=== PATIENT | female | born 1995 | race Caucasian/White ===

== ENCOUNTER 2016-10-13 22:58 | Emergency (ER) | payer OTHER ==
[~2016-10-13] VITALS: Ht 156.2 cm; Wt 55.0 kg
[~2016-10-13 22:58] MED LIST: BACT800T5 PO; CEPH500C3 PO; PENI500T PO
[2016-10-13 23:01] VITALS: BP 125/75; PULSE 107; RESP 16; TEMP 98.3; O2SAT 100
[2016-10-14 01:00] VITALS: BP 118/69; PULSE 98; RESP 14; O2SAT 100
[2016-10-14] MEDS ORDERED: QUEtiapine FUMARATE 25 MG TAB PO ONE (02:15)
[2016-10-14] MEDS ORDERED: IBUPROFEN 600 MG TAB PO ONE (02:15)
[2016-10-14] MEDS ORDERED: LORazepam 1 MG TAB PO ONE (02:15)
[2016-10-14 02:34] LABS: AUTOMATED NEUTROPHIL # 6.7 TH/MM3 (1.8-7.7); BASOPHIL # 0.1 TH/MM3 (0-0.2); BASOPHIL % 0.6 % (0.0-2.0); EOSINOPHIL # 0.1 TH/MM3 (0-0.4); EOSINOPHIL % 1.1 % (0.0-4.0); HEMATOCRIT 39.9 % (35.0-46.0); HEMO FLAGS DIFF FINAL; LYMPH % 26.9 % (9.0-44.0); LYMPHOCYTE # 2.9 TH/MM3 (1.0-4.8); MEAN CELL VOLUME 86.2 FL (80.0-100.0); MEAN CORPUSCULAR HEMOGLOBIN 29.3 PG (27.0-34.0); MONO % 8.6 % (0.0-8.0); NEUT % 62.8 % (16.0-70.0); PLATELET COUNT 346 TH/MM3 (150-450); RED BLOOD COUNT 4.62 MIL/MM3 (4.00-5.30); RED CELL DISTRIBUTION WIDTH 13.6 % (11.6-17.2); WHITE BLOOD COUNT 10.6 TH/MM3 (4.0-11.0)
[2016-10-14 02:48] LABS: ALT (GPT) 20 U/L (10-53); ANION GAP 10 MEQ/L (5-15); AST (GOT) 23 U/L (15-37); BICARBONATE 23.6 MEQ/L (21.0-32.0); BLOOD UREA NITROGEN 19 MG/DL (7-18); CHLORIDE 103 MEQ/L (98-107); GLOMERULAR FILTRATION RATE 73 ML/MIN (>89); POTASSIUM 3.9 MEQ/L (3.5-5.1); SODIUM (NA) 137 MEQ/L (136-145)
[2016-10-14 02:50] LABS: ALKALINE PHOSPHATASE 61 U/L (45-117)
[2016-10-14 02:52] LABS: ACETAMINOPHEN LESS THAN 2.0 MCG/ML (10.0-30.0)
[2016-10-14 03:00] VITALS: BP 124/64; PULSE 95; RESP 14; O2SAT 100
[2016-10-14] MEDS ORDERED: SODIUM CHLOR 0.9% 1000 ML INJ 1,000 ML IV SCH (03:49)
--- NOTE | 2016-10-14 03:57 | PD ---
HPI Chief Complaint: Psychiatric Symptoms Time Seen by Provider: 01:59 Travel History International Travel<30 days: No Contact w/Intl Traveler<30days: No Traveled to known affect area: No History of Present Illness HPI 19-year-old female presents emergency department for evaluation of body aches and not taking her medicine feeling off. Patient also states she was kicked out of her apartment and her medicines including Seroquel were there but she was not allowed in there so she needs refill. Ration states "I feel ready to snap and needs psychiatric help". Patient also complains of generalized body aches and states she was out in the sun recently. She denies any fevers rash bowel pain nausea vomiting diarrhea. She also does complain of some bruising in bilateral lower extremity's. PFSH Past Medical History Bipolar Disorder: Yes Anxiety: Yes Depression: Yes Diminished Hearing: No Insomnia: Yes Schizophrenia: Yes Tetanus Vaccination: Unknown Influenza Vaccination: No ?: Not LMP: 10/10/16 Past Surgical History Surgical History: No Previous Surgery Social History Alcohol Use: Yes (OCCASIONALLY) Tobacco Use: Yes (1/2 PPD) Substance Use: Yes (MARIJUANA, DILUADID, XANAX, ADDERALL, VYVANSE, CRACK, FLAKKA, CORI) Allergies-Medications (Allergen,Severity, Reaction): Coded Allergies: No Known Allergies (Unverified , 10/13/16) Reported Meds & Prescriptions Reported Meds & Active Scripts Active Bactrim DS (Sulfamethoxazole-Trimethoprim DS) 1 Tab Tab 1 Tab PO BID 10 Days Keflex (Cephalexin Monohydrate) 500 Mg Cap 500 Mg PO BID Pen Vk (Penicillin V Potassium) 500 Mg Tab 500 Mg PO BID Review of Systems Except as stated in HPI: all other systems reviewed are Neg Physical Exam Narrative GENERAL: Well-developed well-nourished, thin but in no apparent distress. SKIN: Focused skin assessment warm/dry. Patient's feet are significant only dirty, there are bilateral ecchymosis over the shins which are very small show signs of healing. HEAD: Atraumatic. Normocephalic. EYES: Pupils equal and round. No scleral icterus. No injection or drainage. ENT: No nasal bleeding or discharge. Mucous membranes pink and moist. NECK: Trachea midline. No JVD. CARDIOVASCULAR: Regular rate and rhythm. No murmur appreciated. RESPIRATORY: No accessory muscle use. Clear to auscultation. Breath sounds equal bilaterally. GASTROINTESTINAL: Abdomen soft, non-tender, nondistended. Hepatic and splenic margins not palpable. MUSCULOSKELETAL: No obvious deformities. No clubbing. No cyanosis. No edema. NEUROLOGICAL: Awake and alert. No obvious cranial nerve deficits. Motor grossly within normal limits. Normal speech. PSYCHIATRIC: Endorses suicidal ideation without planning. Height and level of awareness could be early rody. Data Data Last Documented VS Vital Signs Date Time Temp Pulse Resp B/P Pulse Ox O2 Delivery O2 Flow Rate FiO2 10/14/16 01:30 82 20 10/13/16 23:01 98.3 125/75 100 Orders Complete Blood Count With Diff (10/14/16 02:07) Comprehensive Metabolic Panel (10/14/16 02:07) Psych Screen (10/14/16 02:07) Drug Screen, Random Urine (10/14/16 02:07) Alcohol (Ethanol) (10/14/16 02:07) Lorazepam (Ativan) (10/14/16 02:15) Quetiapine (Seroquel) (10/14/16 02:15) Ibuprofen (Motrin) (10/14/16 02:15) Salicylates (Aspirin) (10/14/16 02:19) Tylenol (Acetaminophen) (10/14/16 02:15) Ed Urine Pregnancytest Poc (10/14/16 02:31) Creatine Kinase (Cpk) (10/14/16 03:06) CKMB (10/14/16 03:06) CKMB% (10/14/16 03:06) Iv Access Insert/Monitor (10/14/16 03:49) Ecg Monitoring (10/14/16 03:49) Oximetry (10/14/16 03:49) Sodium Chlor 0.9% 1000 Ml Inj (Ns 1000 M (10/14/16 03:49) Sodium Chloride 0.9% Flush (Ns Flush) (10/14/16 04:00) Sodium Chlor 0.9% 1000 Ml Inj (Ns 1000 M (10/14/16 04:00) Labs Laboratory Tests Test 10/14/16 10/14/16 02:15 03:06 White Blood Count 10.6 TH/MM3 Red Blood Count 4.62 MIL/MM3 Hemoglobin 13.5 GM/DL Hematocrit 39.9 % Mean Corpuscular Volume 86.2 FL Mean Corpuscular Hemoglobin 29.3 PG Mean Corpuscular Hemoglobin 34.0 % Concent Red Cell Distribution Width 13.6 % Platelet Count 346 TH/MM3 Mean Platelet Volume 8.0 FL Neutrophils (%) (Auto) 62.8 % Lymphocytes (%) (Auto) 26.9 % Monocytes (%) (Auto) 8.6 % Eosinophils (%) (Auto) 1.1 % Basophils (%) (Auto) 0.6 % Neutrophils # (Auto) 6.7 TH/MM3 Lymphocytes # (Auto) 2.9 TH/MM3 Monocytes # (Auto) 0.9 TH/MM3 Eosinophils # (Auto) 0.1 TH/MM3 Basophils # (Auto) 0.1 TH/MM3 CBC Comment DIFF FINAL Differential Comment Sodium Level 137 MEQ/L Potassium Level 3.9 MEQ/L Chloride Level 103 MEQ/L Carbon Dioxide Level 23.6 MEQ/L Anion Gap 10 MEQ/L Blood Urea Nitrogen 19 MG/DL Creatinine 0.96 MG/DL Estimat Glomerular Filtration 73 ML/MIN Rate Random Glucose 91 MG/DL Calcium Level 9.0 MG/DL Total Bilirubin 2.0 MG/DL Aspartate Amino Transf 23 U/L (AST/SGOT) Alanine Aminotransferase 20 U/L (ALT/SGPT) Alkaline Phosphatase 61 U/L Total Protein 8.3 GM/DL Albumin 4.9 GM/DL Salicylates Level 2.6 MG/DL Acetaminophen Level LESS THAN 2.0 MCG/ML Ethyl Alcohol Level LESS THAN 3 MG/DL Total Creatine Kinase 544 U/L MDM Medical Decision Making Medical Screen Exam Complete: Yes Emergency Medical Condition: Yes Differential Diagnosis Bipolar disorder, rody, suicidal ideation, medication noncompliance, rhabdomyolysis, generalized body aches. Narrative Course Patient was roomed in the emergency department, she appears well in no apparent distress. Her CK is minimally elevated to 500 and she was given 2 L normal saline in the emergency department. She was also given Seroquel and Ativan. Patient would like to see a psychiatrist. At this time I don't think she meets involuntary criteria but would like to do so voluntarily. After HER-2 liters of normal saline she will be medically stable for psychiatric evaluation and disposition. Urine test was negative. Remainder of her labs are within normal limits. Diagnosis Primary Impression: Dehydration Additional Impression: Rody Condition: Stable Hamzah Delgado MD Oct 14, 2016 03:57
[2016-10-14] MEDS ORDERED: SODIUM CHLOR 0.9% 1000 ML INJ 1,000 ML IV ONE (04:00)
[2016-10-14] MEDS ORDERED: SODIUM CHLORIDE 0.9% FLUSH 10 ML FLUSH IV FLUSH PRN (04:00)
[2016-10-14 04:13] LABS: CKMB 2.2 NG/ML (0.5-3.6)
[2016-10-14 04:23] VITALS: RESP 19; O2SAT 98
[2016-10-14 05:00] VITALS: BP 115/70; PULSE 98; RESP 14; O2SAT 100
[2016-10-14] MEDS ORDERED: DIAZ5 PO (05:05)
[2016-10-14] MEDS ORDERED: SERO300T PO (05:05)
[2016-10-14 08:00] VITALS: BP 110/72; PULSE 89; RESP 14; O2SAT 100
[2016-10-14 11:00] VITALS: BP 114/75; PULSE 92; RESP 14; O2SAT 100
--- NOTE | 2016-10-14 12:51 | PD ---
History of Present Illness Chief Complaint: Psychiatric Symptoms Time Seen by Provider: 12:30 Travel History International Travel<30 Days: No Contact w/Intl Traveler<30days: No Known affected area: No Legal Status Legal Status: Voluntary History of Present Illness: This is a 20-year-old female who is unpleasant and disrespectful, seeking refills of Seroquel and Valium because she states that she has been kicked out of her apartment. She is not suicidal or homicidal but was certainly argumentative and disrespectful with regard to medications. She makes excuses such as she just woke up at 12:00 PM, and therefore does not want the lights turned on the room, or to sit up and speak with this physician. This physician offered to provide her with a replacement prescription for Seroquel but not Valium. At this point the patient became irate and argumentative, indicating that because she had abused drugs in the past did not mean she never become addicted to them. Patient demonstrates no psychotic symptoms and her cognition is intact. This physician feels that her primary problem is the abuse of drugs and a personality disorder. It with therefore be contraindicated to get into her wish for psychiatric inpatient hospitalization with Valium administration. PFSH Past Medical History Medical History: Denies Significant Hx Bipolar Disorder: Yes Anxiety: Yes Depression: Yes Diminished Hearing: No Insomnia: Yes Schizophrenia: Yes Tetanus Vaccination: Unknown Influenza Vaccination: No ?: Not LMP: 10/10/16 Past Surgical History Surgical History: No Previous Surgery Psychiatric History Psychiatric History Hx Psychiatric Treatment: Reports treatment for an alleged diagnosis of bipolar disorder. This physician does not see evidence of a mood disorder but rather evidence of a personality disorder, including drug abuse and manipulativeness. Social History Hx Alcohol Use: Yes (OCCASIONALLY) Hx Tobacco Use: Yes (1/2 PPD) Hx Substance Use: Yes (MARIJUANA, DILUADID, XANAX, ADDERALL, VYVANSE, CRACK, FLAKKA, CORI) Allergies-Medications (Allergen,Severity, Reaction): Coded Allergies: No Known Allergies (Unverified , 10/13/16) Reported Meds & Prescriptions Reported Meds & Active Scripts Active Reported Valium (Diazepam) 5 Mg Tab 5 Mg PO QID PRN Seroquel (Quetiapine Fumarate) 300 Mg Tab 350 Mg PO BID Review of Systems ROS Limitations: Clinical Condition Except as stated in HPI: all other systems reviewed are Neg Exam Exam Limitations: Clinical Condition Alert: Yes [place]: Person, Place, Date, Situation Mood: Oppositional Affect: Labile Speech: Clear, Logical Eye Contact: Indirect Memory Intact: Immediate, Recent, Remote Insight/Judgement Impaired but adequate. MDM Medical Decision Making Medical Record Reviewed: Yes Assessment/Plan Patient is drug seeking and appears to be very manipulative and exhibiting features of a borderline personality disorder. As described previously, this physician is willing to give her a replacement prescription for Seroquel 300 mg a day but not a replacement prescription for Valium, if she had one in the first place. Patient should not be psychiatrically hospitalized as she is drug seeking and manipulative. This does not mean she is without risk for acting out. However, it is counter therapeutic to give into her manipulations. Orders Complete Blood Count With Diff (10/14/16 02:07) Comprehensive Metabolic Panel (10/14/16 02:07) Psych Screen (10/14/16 02:07) Drug Screen, Random Urine (10/14/16 02:07) Alcohol (Ethanol) (10/14/16 02:07) Lorazepam (Ativan) (10/14/16 02:15) Quetiapine (Seroquel) (10/14/16 02:15) Ibuprofen (Motrin) (10/14/16 02:15) Salicylates (Aspirin) (10/14/16 02:19) Tylenol (Acetaminophen) (10/14/16 02:15) Ed Urine Pregnancytest Poc (10/14/16 02:31) Creatine Kinase (Cpk) (10/14/16 03:06) CKMB (10/14/16 03:06) CKMB% (10/14/16 03:06) Iv Access Insert/Monitor (10/14/16 03:49) Ecg Monitoring (10/14/16 03:49) Oximetry (10/14/16 03:49) Sodium Chlor 0.9% 1000 Ml Inj (Ns 1000 M (10/14/16 03:49) Sodium Chloride 0.9% Flush (Ns Flush) (10/14/16 04:00) Sodium Chlor 0.9% 1000 Ml Inj (Ns 1000 M (10/14/16 04:00) Results Vital Signs Date Time Temp Pulse Resp B/P Pulse Ox O2 Delivery O2 Flow Rate FiO2 10/14/16 05:00 98 14 115/70 100 Room Air 10/14/16 04:23 19 98 Room Air 10/14/16 03:00 95 14 124/64 100 Room Air 10/14/16 01:30 82 20 10/14/16 01:00 98 14 118/69 100 Room Air 10/13/16 23:01 98.3 107 16 125/75 100 Laboratory Tests Test 10/14/16 10/14/16 02:15 03:06 White Blood Count 10.6 Red Blood Count 4.62 Hemoglobin 13.5 Hematocrit 39.9 Mean Corpuscular Volume 86.2 Mean Corpuscular Hemoglobin 29.3 Mean Corpuscular Hemoglobin 34.0 Concent Red Cell Distribution Width 13.6 Platelet Count 346 Mean Platelet Volume 8.0 Neutrophils (%) (Auto) 62.8 Lymphocytes (%) (Auto) 26.9 Monocytes (%) (Auto) 8.6 Eosinophils (%) (Auto) 1.1 Basophils (%) (Auto) 0.6 Neutrophils # (Auto) 6.7 Lymphocytes # (Auto) 2.9 Monocytes # (Auto) 0.9 Eosinophils # (Auto) 0.1 Basophils # (Auto) 0.1 CBC Comment DIFF FINAL Differential Comment Sodium Level 137 Potassium Level 3.9 Chloride Level 103 Carbon Dioxide Level 23.6 Anion Gap 10 Blood Urea Nitrogen 19 Creatinine 0.96 Estimat Glomerular Filtration 73 Rate Random Glucose 91 Calcium Level 9.0 Total Bilirubin 2.0 Aspartate Amino Transf 23 (AST/SGOT) Alanine Aminotransferase 20 (ALT/SGPT) Alkaline Phosphatase 61 Total Protein 8.3 Albumin 4.9 Salicylates Level 2.6 Acetaminophen Level LESS THAN 2.0 Ethyl Alcohol Level LESS THAN 3 Total Creatine Kinase 544 Creatine Kinase MB 2.2 Creatine Kinase MB % 0.4 Diagnosis Primary Impression: Dehydration Additional Impression: Adjustment disorder with mixed disturbance of emotions and conduct Condition: Stable Problem Qualifiers Armani Mccray MD Oct 14, 2016 12:51
== END 2016-10-14 14:33 | disposition home or self-care (01) ==
LOC: NEPE 22:58
DX: E86.0 Dehydration (principal); F43.25 Adjustment disorder with mixed disturbance of emotions and conduct; Z79.899 Other long term (current) drug therapy
CPT/HCPCS: 80053; 80307; 82550; 82552; 84703; 85025; 96360; 99283; J7030

== ENCOUNTER 2017-01-09 00:39 | Emergency (ER) | payer OTHER ==
[~2017-01-09] VITALS: Ht 167.6 cm; Wt 65.0 kg
[~2017-01-09 00:39] MED LIST changes: -BACT800T5 PO; -CEPH500C3 PO; +DIAZ5 PO; -PENI500T PO; +SERO300T PO
[2017-01-09 00:43] VITALS: BP 101/59; PULSE 96; RESP 12; TEMP 98.8; O2SAT 100
[2017-01-09] MEDS ORDERED: SODIUM CHLOR 0.9% 1000 ML INJ 1,000 ML IV ONE (01:02)
[2017-01-09] MEDS ORDERED: SODIUM CHLORIDE 0.9% FLUSH 10 ML FLUSH IVF PRN (01:15)
[2017-01-09 01:33] LABS: BASOPHIL % 0.2 % (0.0-2.0); EOSINOPHIL # 0.1 TH/MM3 (0-0.4); EOSINOPHIL % 0.8 % (0.0-4.0); HEMATOCRIT 31.7 % (35.0-46.0); HEMO FLAGS DIFF FINAL; LYMPHOCYTE # 1.9 TH/MM3 (1.0-4.8); MEAN CELL VOLUME 83.8 FL (80.0-100.0); MEAN CORPUSCULAR HEMOGLOBIN 27.6 PG (27.0-34.0); MEAN CORPUSCULAR HGB CONC 32.9 % (32.0-36.0); MONO % 8.1 % (0.0-8.0); NEUT % 74.9 % (16.0-70.0); PLATELET COUNT 334 TH/MM3 (150-450); RED BLOOD COUNT 3.78 MIL/MM3 (4.00-5.30); RED CELL DISTRIBUTION WIDTH 13.3 % (11.6-17.2)
[2017-01-09 01:35] LABS: BACTERIA, URINE RARE /hpf; BLOOD, URINE TRACE (NEG); CALCIUM OXALATE CRYSTALS,URINE OCC /hpf; GLUCOSE,URINE NEG (NEG); KETONE, URINE NEG (NEG); MUCUS URINE FEW /lpf (OCC); NITRITE,URINE NEG (NEG); RENAL EPITHELIAL CELLS <1 /hpf; SQUAMOUS EPITHELIAL CELL URINE 11 /hpf (0-5); URINE COLOR YELLOW (YELLW/STRAW)
[2017-01-09 01:39] LABS: COMMENT (UR) CULT NOT INDICATED; CULTURE IF INDICATED CULT NOT INDICATED
[2017-01-09 02:03] LABS: BICARBONATE 27.6 MEQ/L (21.0-32.0); POTASSIUM 3.6 MEQ/L (3.5-5.1)
[2017-01-09] MEDS ORDERED: NITROFURANTOIN MONOHYD MACROCR 100 MG CAP PO ONE (03:15)
--- NOTE | 2017-01-09 03:43 | PD ---
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 Patient went to clinic today and was diagnosed and treated with gonorrhea and syphillus. Patient reports that she looked up STD's with and became anxious. Patient here to make sure "everything is okay." Patient with no vaginal discharge/bleeding, denies any abdominal pain this time. Patient denies any fevers or chills, denies any nausea or vomiting. Patient did have an US at 9 weeks which showed IUP with HR. 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 PFSH Past Medical History Bipolar Disorder: Yes Anxiety: Yes Depression: Yes Diminished Hearing: No Insomnia: Yes Schizophrenia: Yes ?: Past Surgical History Surgical History: No Previous Surgery Social History Alcohol Use: Yes (OCCASIONALLY) Tobacco Use: No Substance Use: Yes (MARIJUANA, DILUADID, XANAX, ADDERALL, VYVANSE, CRACK, FLAKKA, CORI) Allergies-Medications (Allergen,Severity, Reaction): Coded Allergies: No Known Allergies (Unverified , 01/09/17) Reported Meds & Prescriptions Reported Meds & Active Scripts Active Macrobid (Nitrofurantoin Monoh/Nitrofur Macro) 100 Mg Cap 100 Mg PO BID 10 Days Reported Valium (Diazepam) 5 Mg Tab 5 Mg PO QID PRN Seroquel (Quetiapine Fumarate) 300 Mg Tab 350 Mg PO BID Review of Systems General / Constitutional: No: Fever Eyes: No: Visual changes HENT: No: Headaches Cardiovascular: No: Chest Pain or Discomfort Respiratory: No: Shortness of Breath Gastrointestinal: No: Nausea, Vomiting, Abdominal Pain Genitourinary: No: Dysuria Musculoskeletal: No: Pain Skin: No Rash Neurologic: No: Weakness Psychiatric: No: Depression Endocrine: No: Polydipsia Hematologic/Lymphatic: No: Easy Bruising Physical Exam Narrative GENERAL: NAD, nontoxic SKIN: Focused skin assessment warm/dry. HEAD: Atraumatic. Normocephalic. NECK: Trachea midline. No JVD. CARDIOVASCULAR: Regular rate and rhythm. No murmur appreciated. RESPIRATORY: No accessory muscle use. Clear to auscultation. Breath sounds equal bilaterally. GASTROINTESTINAL: Abdomen soft, non-tender, nondistended. Hepatic and splenic margins not palpable. MUSCULOSKELETAL: No obvious deformities. No clubbing. No cyanosis. No edema. NEUROLOGICAL: Awake and alert. No obvious cranial nerve deficits. Motor grossly within normal limits. Normal speech. PSYCHIATRIC: Patient anxious on exam Data Data Last Documented VS Vital Signs Date Time Temp Pulse Resp B/P Pulse Ox O2 Delivery O2 Flow Rate FiO2 01/09/17 00:43 98.8 96 12 101/59 100 Room Air Orders Beta Hcg (Quant/Titer) (01/09/17 01:02) Complete Blood Count With Diff (01/09/17 01:02) Basic Metabolic Panel (Bmp) (01/09/17 01:02) Urinalysis - C+S If Indicated (01/09/17 01:02) Iv Access Insert/Monitor (01/09/17 01:02) Heart Tones (01/09/17 01:02) Sodium Chloride 0.9% Flush (Ns Flush) (01/09/17 01:15) Sodium Chlor 0.9% 1000 Ml Inj (Ns 1000 M (01/09/17 01:02) Ed Urine Pregnancytest Poc (01/09/17 01:02) Nitrofurantoin Monohyd Macrocr (Macrobid (01/09/17 03:15) Labs Laboratory Tests Test 01/09/17 01:15 White Blood Count 12.0 TH/MM3 Red Blood Count 3.78 MIL/MM3 Hemoglobin 10.4 GM/DL Hematocrit 31.7 % Mean Corpuscular Volume 83.8 FL Mean Corpuscular Hemoglobin 27.6 PG Mean Corpuscular Hemoglobin 32.9 % Concent Red Cell Distribution Width 13.3 % Platelet Count 334 TH/MM3 Mean Platelet Volume 8.3 FL Neutrophils (%) (Auto) 74.9 % Lymphocytes (%) (Auto) 16.0 % Monocytes (%) (Auto) 8.1 % Eosinophils (%) (Auto) 0.8 % Basophils (%) (Auto) 0.2 % Neutrophils # (Auto) 9.0 TH/MM3 Lymphocytes # (Auto) 1.9 TH/MM3 Monocytes # (Auto) 1.0 TH/MM3 Eosinophils # (Auto) 0.1 TH/MM3 Basophils # (Auto) 0.0 TH/MM3 CBC Comment DIFF FINAL Differential Comment Urine Color YELLOW Urine Turbidity HAZY Urine pH 6.0 Urine Specific [place] 1.024 Urine Protein TRACE mg/dL Urine Glucose (UA) NEG mg/dL Urine Ketones NEG mg/dL Urine Occult Blood TRACE Urine Nitrite NEG Urine Bilirubin NEG Urine Urobilinogen 2.0 MG/DL Urine Leukocyte Esterase LARGE Urine RBC 3 /hpf Urine WBC 40 /hpf Urine Squamous Epithelial 11 /hpf Cells Urine Renal Epithelial Cells <1 /hpf Urine Calcium Oxalate Crystals OCC /hpf Urine Bacteria RARE /hpf Urine Mucus FEW /lpf Microscopic Urinalysis Comment CULT NOT INDICATED Sodium Level 137 MEQ/L Potassium Level 3.6 MEQ/L Chloride Level 104 MEQ/L Carbon Dioxide Level 27.6 MEQ/L Anion Gap 5 MEQ/L Blood Urea Nitrogen 8 MG/DL Creatinine 0.57 MG/DL Estimat Glomerular Filtration 133 ML/MIN Rate Random Glucose 86 MG/DL Calcium Level 9.1 MG/DL Human Chorionic Gonadotropin, [id number] MIU/ML Quant MDM Medical Decision Making Medical Screen Exam Complete: Yes Emergency Medical Condition: Yes Interpretation(s) Vital Signs Date Time Temp Pulse Resp B/P Pulse Ox O2 Delivery O2 Flow Rate FiO2 01/09/17 00:43 98.8 96 12 101/59 100 Room Air Laboratory Tests Test 01/09/17 01:15 White Blood Count 12.0 TH/MM3 (4.0-11.0) Red Blood Count 3.78 MIL/MM3 (4.00-5.30) Hemoglobin 10.4 GM/DL (11.6-15.3) Hematocrit 31.7 % (35.0-46.0) Mean Corpuscular Volume 83.8 FL (80.0-100.0) Mean Corpuscular Hemoglobin 27.6 PG (27.0-34.0) Mean Corpuscular Hemoglobin 32.9 % Concent (32.0-36.0) Red Cell Distribution Width 13.3 % (11.6-17.2) Platelet Count 334 TH/MM3 (150-450) Mean Platelet Volume 8.3 FL (7.0-11.0) Neutrophils (%) (Auto) 74.9 % (16.0-70.0) Lymphocytes (%) (Auto) 16.0 % (9.0-44.0) Monocytes (%) (Auto) 8.1 % (0.0-8.0) Eosinophils (%) (Auto) 0.8 % (0.0-4.0) Basophils (%) (Auto) 0.2 % (0.0-2.0) Neutrophils # (Auto) 9.0 TH/MM3 (1.8-7.7) Lymphocytes # (Auto) 1.9 TH/MM3 (1.0-4.8) Monocytes # (Auto) 1.0 TH/MM3 (0-0.9) Eosinophils # (Auto) 0.1 TH/MM3 (0-0.4) Basophils # (Auto) 0.0 TH/MM3 (0-0.2) CBC Comment DIFF FINAL Differential Comment Urine Color YELLOW (YELLW/STRAW) Urine Turbidity HAZY (CLEAR) Urine pH 6.0 (5.0-8.5) Urine Specific [place] 1.024 (1.002-1.035) Urine Protein TRACE mg/dL (NEG-TRACE) Urine Glucose (UA) NEG mg/dL (NEG) Urine Ketones NEG mg/dL (NEG) Urine Occult Blood TRACE (NEG) Urine Nitrite NEG (NEG) Urine Bilirubin NEG (NEG) Urine Urobilinogen 2.0 MG/DL (LESS THAN 2.0) Urine Leukocyte Esterase LARGE (NEG) Urine RBC 3 /hpf (0-3) Urine WBC 40 /hpf (0-5) Urine Squamous Epithelial 11 /hpf (0-5) Cells Urine Renal Epithelial Cells <1 /hpf (NONE) Urine Calcium Oxalate Crystals OCC /hpf (NONE) Urine Bacteria RARE /hpf (NONE) Urine Mucus FEW /lpf (OCC) Microscopic Urinalysis Comment CULT NOT INDICATED Sodium Level 137 MEQ/L (136-145) Potassium Level 3.6 MEQ/L (3.5-5.1) Chloride Level 104 MEQ/L (98-107) Carbon Dioxide Level 27.6 MEQ/L (21.0-32.0) Anion Gap 5 MEQ/L (5-15) Blood Urea Nitrogen 8 MG/DL (7-18) Creatinine 0.57 MG/DL (0.50-1.00) Estimat Glomerular Filtration 133 ML/MIN Rate (>89) Random Glucose 86 MG/DL (74-106) Calcium Level 9.1 MG/DL (8.5-10.1) Human Chorionic Gonadotropin, [id number] MIU/ML Quant (0-5) Differential Diagnosis threatened miscarriage, uti, electrolyte abnormality, early Narrative Course Patient with no abdominal pain, no vaginal bleeding or discharge. Lab work including hCG Quant ordered. Patient does have a heart rate of 169, there is an IUP with POC ultrasound at bedside. FHR: 169 CBC & BMP Diagram 01/09/17 01:15 Copies of labs were given to patient. Precautions reviewed. patient reassured - no abdominal pain, no vaginal bleeding or discharge UA: Large leuk esterase, 40wbc - will treat for uti pt will follow up with tree inspector and will return to ER as needed Diagnosis Primary Impression: Threatened miscarriage in early Additional Impression: UTI (urinary tract infection) Qualified Code: N30.01 - Acute cystitis with hematuria Patient Instructions: General Instructions Additional Instructions: Your HCG Quant is [phone], please have your tree inspector repeat this in 2 days as this number should double Return to ER as needed Pelvic rest Please follow up with all cultures from today Please follow up with your tree inspector as soon as possible Med/Other Pt SpecificInfo: Prescription(s) given Scripts Nitrofurantoin Monohydrate Macrocrystals (Macrobid)100 Mg [id number] Mg PO BID 10 Days Ref 0 Prov:Arabella Dalton DO 01/09/17 Disposition: 01 DISCHARGE HOME Condition: Stable Arabella Dalton DO Jan 09, 2017 03:43
[2017-01-09] MEDS ORDERED: MACR100C2 PO (03:44)
== END 2017-01-09 04:20 | disposition home or self-care (01) ==
LOC: NEPE 00:39
DX: O20.0 Threatened abortion (principal); O23.41 Unspecified infection of urinary tract in pregnancy, first trimester; F31.9 Bipolar disorder, unspecified; F41.9 Anxiety disorder, unspecified; F20.9 Schizophrenia, unspecified; F32.9 Major depressive disorder, single episode, unspecified; Z3A.13 13 weeks gestation of pregnancy; Z79.899 Other long term (current) drug therapy
CPT/HCPCS: 80048; 81001; 84702; 84703; 85025; 96360; 96361; 99285; J7030